=== PATIENT | male | born 1970 | race Caucasian/White ===

== ENCOUNTER → 2016-04-15 | Outpatient (CLI) | payer BC ==
[~2016-04-15] MED LIST: HCTZ DAILY; OLMESARTAN; OXYC-57 PO; [UNRECOGNIZED DRUG - OTHER]; [UNRECOGNIZED DRUG - OTHER]
[2016-04-15 18:55] LABS: BASO % 0.2 %; BASO ABS # 0.03 K/uL (0-0.2); COMPLETE YES; EOS % 1.7 %; HEMATOCRIT 44.2 % (42-52); IG% 0.6 %; LYMPH % 29.1 %; LYMPH ABS # 3.68 K/uL (1.2-3.4); MEAN CELL VOLUME 91.9 fL (80-100); MEAN CORPUSCULAR HEMOGLOBIN 30.4 pg (25-34); MEAN PLATELET VOLUME 9.8 fL (7.4-10.4); NEUT % 61.4 %; PLATELET COUNT 348 K/uL (130-400); RED BLOOD COUNT 4.81 M/uL (4.7-6.1); WHITE BLOOD COUNT 12.65 K/uL (4.8-10.8)
[2016-04-15 19:04] LABS: ALT/SGPT 22 U/L (12-78); BLOOD UREA NITROGEN 42 mg/dl (7-18); BUN/CREATININE RATIO 14.4 (10-20); CALCIUM 8.9 mg/dl (8.5-10.1); CARBON DIOXIDE 26 mmol/L (21-32); CHLORIDE 103 mmol/L (98-107); CHOLESTEROL 150 mg/dl (0-200); GLUCOSE 117 mg/dl (70-99); POTASSIUM 4.1 mmol/L (3.5-5.1); SODIUM 141 mmol/L (136-145); TRIGLYCERIDES 450 mg/dl (0-150)
[2016-04-15 19:07] LABS: ALB/GLOB RATIO 0.8 (0.9-2); ALKALINE PHOSPHATASE 157 U/L (45-117); AST/SGOT 21 U/L (15-37); CHOLESTEROL/HDL RATIO 4.2; HDL CHOLESTEROL 36 mg/dl
[2016-04-16 06:22] LABS: ESTIMATED AVERAGE GLUCOSE 151 mg/dl; HA1C FLAG Normal (Normal)
== END | disposition home or self-care (01) ==
LOC: C.LABSPEC 11:01
PROVIDERS: ATTEND Family Medicine
DX: E10.21 Type 1 diabetes mellitus with diabetic nephropathy (principal); I10 Essential (primary) hypertension

== ENCOUNTER → 2016-07-15 | Outpatient (CLI) | payer BC ==
[2016-07-15 18:06] LABS: BASO % 0.2 %; BASO ABS # 0.02 K/uL (0-0.2); COMPLETE YES; EOS % 1.5 %; IG% 0.5 %; LYMPH % 26.9 %; LYMPH ABS # 2.99 K/uL (1.2-3.4); MEAN CELL VOLUME 91.3 fL (80-100); MEAN CORPUSCULAR HEMOGLOBIN 31.5 pg (25-34); MEAN CORPUSCULAR HGB CONC 34.5 g/dl (32-36); MEAN PLATELET VOLUME 9.7 fL (7.4-10.4); NEUT % 62.9 %; PLATELET COUNT 272 K/uL (130-400)
[2016-07-15 18:33] LABS: ALT/SGPT 19 U/L (12-78); BLOOD UREA NITROGEN 37 mg/dl (7-18); BUN/CREATININE RATIO 12.2 (10-20); CALCIUM 8.7 mg/dl (8.5-10.1); CARBON DIOXIDE 27 mmol/L (21-32); CHLORIDE 107 mmol/L (98-107); GLUCOSE 81 mg/dl (70-99); POTASSIUM 3.7 mmol/L (3.5-5.1); SODIUM 142 mmol/L (136-145)
[2016-07-15 18:36] LABS: ALB/GLOB RATIO 0.9 (0.9-2); ALKALINE PHOSPHATASE 162 U/L (45-117); AST/SGOT 17 U/L (15-37)
[2016-07-16 06:18] LABS: ESTIMATED AVERAGE GLUCOSE 189 mg/dl; HA1C FLAG Normal (Normal)
== END | disposition home or self-care (01) ==
LOC: C.LABSPEC 11:27
PROVIDERS: ATTEND Family Medicine
DX: E10.21 Type 1 diabetes mellitus with diabetic nephropathy (principal)

== ENCOUNTER → 2016-11-26 | Outpatient (CLI) | payer BC ==
[2016-11-26 18:21] LABS: BASO % 0.3 %; BASO ABS # 0.03 K/uL (0-0.2); COMPLETE YES; EOS % 1.4 %; HEMATOCRIT 41.2 % (42-52); IG% 0.5 %; LYMPH % 23.4 %; LYMPH ABS # 2.75 K/uL (1.2-3.4); MEAN CELL VOLUME 89.4 fL (80-100); MEAN CORPUSCULAR HEMOGLOBIN 31.5 pg (25-34); MEAN CORPUSCULAR HGB CONC 35.2 g/dl (32-36); MEAN PLATELET VOLUME 10.2 fL (7.4-10.4); MONO % 6.4 %; PLATELET COUNT 313 K/uL (130-400); RED BLOOD COUNT 4.61 M/uL (4.7-6.1); WHITE BLOOD COUNT 11.76 K/uL (4.8-10.8)
[2016-11-26 18:44] LABS: ALB/GLOB RATIO 0.8 (0.9-2); ALKALINE PHOSPHATASE 176 U/L (45-117); ALT/SGPT 19 U/L (12-78); AST/SGOT 21 U/L (15-37); BLOOD UREA NITROGEN 57 mg/dl (7-18); BUN/CREATININE RATIO 12.3 (10-20); CALCIUM 8.7 mg/dl (8.5-10.1); CARBON DIOXIDE 27 mmol/L (21-32); CHLORIDE 101 mmol/L (98-107); GLUCOSE 107 mg/dl (70-99); POTASSIUM 3.9 mmol/L (3.5-5.1); SODIUM 137 mmol/L (136-145)
== END | disposition home or self-care (01) ==
LOC: C.LABSPEC 17:36
PROVIDERS: ATTEND Family Medicine
DX: R25.2 Cramp and spasm (principal); R42 Dizziness and giddiness; R61 Generalized hyperhidrosis; R06.02 Shortness of breath

== ENCOUNTER → 2017-05-01 | Outpatient (CLI) | payer BC, OTHER ==
[2017-05-01 18:30] LABS: BASO % 0.1 %; BASO ABS # 0.02 K/uL (0-0.2); EOS % 0.3 %; EOS ABS # 0.05 K/uL (0-0.5); HEMATOCRIT 42.3 % (42-52); HEMOGLOBIN 14.5 g/dL (14.0-18.0); IG# 0.08 K/uL (0.00-0.02); LYMPH % 8.7 %; LYMPH ABS # 1.38 K/uL (1.2-3.4); MEAN CELL VOLUME 92.6 fL (80-100); MEAN CORPUSCULAR HEMOGLOBIN 31.7 pg (25-34); MEAN CORPUSCULAR HGB CONC 34.3 g/dl (32-36); MEAN PLATELET VOLUME 10.1 fL (7.4-10.4); MONO % 4.5 %; MONO ABS # 0.72 K/uL (0.11-0.59); NEUT % 85.9 %; PLATELET COUNT 298 K/uL (130-400); RED CELL DISTRIBUTION WIDTH CV 13.5 % (11.5-14.5); RED CELL DISTRIBUTION WIDTH SD 45.5 fL (36.4-46.3); WHITE BLOOD COUNT 15.95 K/uL (4.8-10.8)
[2017-05-01 20:06] LABS: ALBUMIN 2.8 gm/dl (3.4-5.0); ALKALINE PHOSPHATASE 150 U/L (45-117); ALT/SGPT 16 U/L (12-78); AST/SGOT 15 U/L (15-37); BLOOD UREA NITROGEN 42 mg/dl (7-18); CALCIUM 8.8 mg/dl (8.5-10.1); CARBON DIOXIDE 26 mmol/L (21-32); CHOLESTEROL 115 mg/dl (0-200); CREATININE 3.79 mg/dl (0.60-1.40); GLUCOSE 386 mg/dl (70-99); LDL CHOLESTEROL CALCULATED 19 mg/dl; POTASSIUM 4.9 mmol/L (3.5-5.1); SODIUM 133 mmol/L (136-145); TOTAL PROTEIN 6.4 gm/dl (6.4-8.2)
== END | disposition home or self-care (01) ==
LOC: C.LABSPEC 17:52
PROVIDERS: ATTEND Family Medicine
DX: E10.21 Type 1 diabetes mellitus with diabetic nephropathy (principal); I10 Essential (primary) hypertension

== ENCOUNTER → 2017-07-31 | Outpatient (CLI) | payer BC ==
[2017-07-31 18:12] LABS: BASO % 0.2 %; BASO ABS # 0.02 K/uL (0-0.2); EOS % 1.7 %; EOS ABS # 0.19 K/uL (0-0.5); HEMATOCRIT 40.1 % (42-52); HEMOGLOBIN 13.9 g/dL (14.0-18.0); IG# 0.08 K/uL (0.00-0.02); LYMPH % 26.2 %; LYMPH ABS # 2.97 K/uL (1.2-3.4); MEAN CELL VOLUME 90.5 fL (80-100); MEAN CORPUSCULAR HEMOGLOBIN 31.4 pg (25-34); MEAN CORPUSCULAR HGB CONC 34.7 g/dl (32-36); MEAN PLATELET VOLUME 9.8 fL (7.4-10.4); MONO % 6.6 %; MONO ABS # 0.75 K/uL (0.11-0.59); NEUT % 64.6 %; NEUT ABS # 7.33 K/uL (1.4-6.5); PLATELET COUNT 286 K/uL (130-400); RED CELL DISTRIBUTION WIDTH CV 13.5 % (11.5-14.5); WHITE BLOOD COUNT 11.34 K/uL (4.8-10.8)
[2017-07-31 18:24] LABS: ALT/SGPT 16 U/L (12-78); AST/SGOT 12 U/L (15-37); BLOOD UREA NITROGEN 54 mg/dl (7-18); CALCIUM 8.7 mg/dl (8.5-10.1); CARBON DIOXIDE 24 mmol/L (21-32); CREATININE 4.48 mg/dl (0.60-1.40); GLUCOSE 213 mg/dl (70-99); POTASSIUM 3.7 mmol/L (3.5-5.1); SODIUM 136 mmol/L (136-145)
[2017-07-31 18:25] LABS: ALKALINE PHOSPHATASE 145 U/L (45-117); TOTAL PROTEIN 6.8 gm/dl (6.4-8.2)
[2017-08-01 07:13] LABS: HEMOGLOBIN A1C 9.1 % (4.5-5.6)
== END | disposition home or self-care (01) ==
LOC: C.LABSPEC 17:54
PROVIDERS: ATTEND Family Medicine
DX: E10.21 Type 1 diabetes mellitus with diabetic nephropathy (principal)

== ENCOUNTER → 2017-11-04 | Outpatient (CLI) | payer BC ==
[~2017-11-04] MED LIST changes: +ALLO300T2 PO; +ATOR-22 PO; +CHOL500021 PO; -HCTZ DAILY; +HYDR12.55 PO; +INSDGI SC; +LIRA1INJ2 SQ; +LOSA1TAB PO; +NOVOLOG SQ; +NXM/40 PO; -OLMESARTAN; +OMEG10007 PO; +RIZA10TA18 PO; +TRAM-10 PO; -[UNRECOGNIZED DRUG - OTHER]; -[UNRECOGNIZED DRUG - OTHER]
[2017-11-04 18:36] LABS: BASO % 0.2 %; BASO ABS # 0.02 K/uL (0-0.2); EOS % 2.1 %; EOS ABS # 0.21 K/uL (0-0.5); HEMATOCRIT 39.9 % (42-52); HEMOGLOBIN 13.5 g/dL (14.0-18.0); IG# 0.06 K/uL (0.00-0.02); LYMPH % 25.9 %; LYMPH ABS # 2.64 K/uL (1.2-3.4); MEAN CELL VOLUME 91.7 fL (80-100); MEAN CORPUSCULAR HGB CONC 33.8 g/dl (32-36); MEAN PLATELET VOLUME 10.1 fL (7.4-10.4); MONO ABS # 0.61 K/uL (0.11-0.59); NEUT % 65.2 %; NEUT ABS # 6.67 K/uL (1.4-6.5); PLATELET COUNT 311 K/uL (130-400); RED CELL DISTRIBUTION WIDTH SD 43.4 fL (36.4-46.3); WHITE BLOOD COUNT 10.21 K/uL (4.8-10.8)
[2017-11-04 18:52] LABS: ALBUMIN 3.1 gm/dl (3.4-5.0); ALKALINE PHOSPHATASE 136 U/L (45-117); ALT/SGPT 19 U/L (12-78); AST/SGOT 20 U/L (15-37); BLOOD UREA NITROGEN 56 mg/dl (7-18); CALCIUM 8.4 mg/dl (8.5-10.1); CARBON DIOXIDE 28 mmol/L (21-32); GLUCOSE 109 mg/dl (70-99); POTASSIUM 3.9 mmol/L (3.5-5.1); SODIUM 139 mmol/L (136-145); TOTAL PROTEIN 6.8 gm/dl (6.4-8.2)
[2017-11-05 06:56] LABS: HEMOGLOBIN A1C 9.2 % (4.5-5.6)
== END | disposition home or self-care (01) ==
LOC: C.LABSPEC 18:01
PROVIDERS: ATTEND Family Medicine
DX: E10.21 Type 1 diabetes mellitus with diabetic nephropathy (principal)

== ENCOUNTER 2017-11-05 07:23 | Day surgery (SDC) | payer BC ==
[~2017-11-05] VITALS: Ht 165.1 cm; Wt 84.1 kg
--- NOTE | 2017-11-05 06:19 | History and Physical ---
History & Physical Date of Service Nov 05, 2017. History & Physical End stage renal disease HPI: Mr. Leo had a fistula placed in the recent past. It went on to occluded. . He had an ultrasound performed which showed his fistula in his left wrist to be occluded at its origin. Cephalic vein just above this is patent and of good caliber however the radial artery flow is diminished in the radial artery heavily calcified. The cephalic vein in the upper arm on the left side is occluded at the shoulder level. The basilic vein is of good caliber on the left side. The right side has small veins in the forearm but does have a good cephalic vein in the upper arm He denies other complaints at this time including headaches, fevers, chills, dizziness, chest pain, shortness of breath , abdominal pain, nausea, vomiting, diarrhea, constipation, dysuria, hematuria, rest pain, claudication, nonhealing wounds or ulcers or other concerns. . ALLERGIES: No known allergies. HOME MEDICATIONS: Reconciled in the chart and include the following: Allopurinol, atorvastatin, esomeprazole, fish oil, hydrochlorothiazide, Lantus, losartan, Maxalt, NovoLog, Saxenda and vitamin D3. PAST MEDICAL HISTORY: Positive for cataracts, type 1 diabetes mellitus, gastroesophageal reflux disease, hypertension, kidney stones, allergic rhinitis. PAST SURGICAL HISTORY: Positive for appendectomy, EGD, photocoagulation to retina and repair of umbilical hernia. FAMILY HISTORY: Positive for ALS in his mother, coronary disease and kidney disease in his father, diabetes in his father and sister. SOCIAL HISTORY: Positive for a past history of tobacco use. The patient quit smoking in 2000. He does not drink alcohol or use illicit drugs, and he is currently employed at a full-time job in a [employer]. REVIEW OF SYSTEMS: Negative for fatigue, fevers, sweats, weight loss, exercise intolerance, abnormal moles or rashes, vision changes or photophobia, ear pain, sinus problems, sore throat, cough, shortness of breath, hemoptysis or wheezing , chest pain, palpitations, edema or syncope, abdominal pain, nausea, vomiting, diarrhea, constipation, dysuria, hematuria, rest pain, claudication, muscle weakness, headaches, dizziness, numbness or seizures. PHYSICAL EXAMINATION: His vital signs today were as follows: Blood pressure 122/66 in the right arm, 114/70 in the left, heart rate 105, oxygen 98% on room air. The patient is 165.1 cm tall and weighs 82.1 kg. Constitutional: In general, the patient is an obese, chronically ill-appearing, middle-aged male in no acute distress. He ambulates slowly without assistance and is active, alert and oriented x4 with normal recent and remote memory. Head is normocephalic and atraumatic. Eyes are EOMI. ENMT exam demonstrates no hearing loss, rhinorrhea or pharyngeal erythema. Neck is supple, nontender with midline trachea without mass or crepitus. Lung exam demonstrates no dyspnea. They are decreased somewhat throughout, but clear bilaterally. Cardiovascular demonstrates nondisplaced apical impulse with a regular rate and rhythm without murmurs. Peripheral pulses are full and equal in all extremities unless otherwise noted. Specifically they are normal in his carotid , brachial, radial and femoral pulses. Lower extremity distal pulses are +1. He has brisk capillary refill, no sign of distal ischemia. Abdomen is soft, nontender with normoactive bowel sounds in all 4 quadrants without guarding or rebound. There is no flank or CVA tenderness and no pulsatile mass appreciable. Bilateral upper extremities demonstrate no cyanosis, edema, clubbing, varicosities or ulcers. No flow in the fistula. Bilateral lower extremities demonstrate trace edema but no cyanosis or ulcerations. ASSESSMENT AND PLAN: End-stage renal disease, not yet on hemodialysis. Plan: Patient for a right antecubital cephalic vein AV fistula creation. I have discussed the risks options and benefits of the procedure with the patient. The patient understands the risks options and benefits and agrees to the procedure.
[~2017-11-05 07:23] MED LIST changes: +CEFAZOLIN 2000MG IV PUSH 15 ML IV SCH; -OXYC-57 PO; +SODIUM CHLORIDE 0.9% 1000ML 1,000 ML IV SCH; -TRAM-10 PO
[2017-11-05 07:59] VITALS: BP 157/90; PULSE 80; TEMP 36.7; O2SAT 98; Ht 165.1 cm; Wt 84.1 kg
[2017-11-05 08:25] LABS: CALCIUM 8.4 mg/dl (8.5-10.1); CREATININE 4.04 mg/dl (0.60-1.40); POTASSIUM 4.3 mmol/L (3.5-5.1); TOTAL PROTEIN 6.7 gm/dl (6.4-8.2)
[2017-11-05] MEDS ORDERED: PROPOFOL IV EMULSION 10 MG/ML 20 ML VIAL ONE (08:25)
[2017-11-05] MEDS ORDERED: LIDOCAINE HCL 2% 2 ML VIAL (20MG/ML) ONE (08:25)
[2017-11-05] MEDS ORDERED: MIDAZOLAM HCL 1 MG/ML 2ML VIAL ONE ×2 (08:26→09:17)
[2017-11-05] MEDS ORDERED: FENTANYL CITRATE INJ 50 MCG/1 ML 2 ML VIAL ONE (08:26)
--- NOTE | 2017-11-05 08:44 | History & Physical Bridge Note ---
H&P Re-Evaluation Bridge Note: I have examined the patient, reviewed the History & Physical and in the interval since the performance of the History & Physical I have noted the following changes of clinical significance: No changes noted
[2017-11-05] MEDS ORDERED: ATROPINE SULFATE 0.1 MG/ML 5ML SYR IV PRN (08:45)
[2017-11-05] MEDS ORDERED: EpHEDrine SULFATE INJ 50 MG/ML AMP IV PRN (08:45)
[2017-11-05] MEDS ORDERED: HEPARIN SOD (PORCINE) 1000 UNIT/ML 10 ML VIAL ONE (08:52)
[2017-11-05] MEDS ORDERED: GELATIN SPONGE SZ 100 ONE (08:52)
[2017-11-05] MEDS ORDERED: THROMBIN FOR SOLN 20000 UNIT KIT ONE (08:52)
[2017-11-05] MEDS ORDERED: BUPIVACAINE/EPINEPHRINE 0.5% MPF 1:200,000 30 ML VIAL ONE (08:52)
[2017-11-05] MEDS ORDERED: LIDOCAINE HCL 1% 20 ML VIAL ONE (08:52)
--- NOTE | 2017-11-05 10:00 | [facility] Post Operative Brief Note ---
Immediate Operative Summary Operative Date Nov 05, 2017. Pre-Operative Diagnosis End Stage Renal Disease Post-Operative Diagnosis End Stage Renal Disease Procedure(s) Performed Right Antecubital Cephalic Vein AV Fistula Creation Surgeon Dr. Emmanuel Lyles [employer] Lead Surgeon(s) Mavis De Luna PA-C Estimated Blood Loss 5mL Findings Consistent with Post-Op Diagnosis Specimens none per surgeon Anesthesia Type MAC Complication(s) none Disposition Accompanied Pt To Recover: no Disposition: Recovery Room / PACU
[2017-11-05] MEDS ORDERED: OXYC-57 PO (10:07)
--- NOTE | 2017-11-05 10:10 | Discharge Instructions ---
Discharge Instructions Date of Service Nov 05, 2017. Visit Reason for Visit: End Stage Renal Disease Discharge Discharge Diagnosis / Problem: End-stage renal disease Discharge Goals Goal(s): Therapeutic intervention Activity Recommendations Activity Limitations: per Instructions/Follow-up section Shower/Bathe: tomorrow Driving or Machine Use: resume 3 days after discharge Anesthesia . Post Anesthesia Instructions: If you have had General Anesthesia or IV Sedation: * Do not drive today. * Resume driving when surgeon permits. * Do not make important decisions or sign legal documents today. * Call surgeon for: 1. Temperature elevations greater than 101 degrees F. 2. Uncontrollable pain. 3. Excessive bleeding. 4. Persistent nausea and vomiting. 5. Medication intolerance (nausea, vomiting or rash). * For nausea and vomiting use only clear liquids such as: tea, soda, bouillon until nausea subsides, then gradually increase diet as tolerated. * If you have any concerns or questions, call your surgeon's office. If physician is unavailable and it is an emergency, call 911 or go to the nearest emergency room. . Instructions / Follow-Up Instructions / Follow-Up Call [phone] to schedule a follow up appointment if one not already scheduled. ACTIVITY RECOMMENDATIONS: See Above SPECIAL CARE INSTRUCTIONS: Call your doctor if: * Temperature above 101 degrees * Pain not relieved by pain medicine ordered * There is increased drainage or redness from any incision * You have any unanswered questions or concerns. Diet Recommendations Recommended Home Diet: resume previous diet Procedures Procedures Performed: Right Antecubital Cephalic Vein AV Fistula Creation Pending Studies Studies pending at discharge: no Work Instructions Return To Work: 1 week Additional Instructions: May return to work on Nov 13, 2017 without restrictions Medical Emergencies . Who to Call and When: Medical Emergencies: If at any time you feel your situation is an emergency, please call 911 immediately. . Non-Emergent Contact Non-Emergency issues call your: Surgeon . . "Provider Documentation" section prepared by Randall Lyles. .
--- NOTE | 2017-11-05 10:14 | [facility] Operative Report ---
Operative Report Operative Date Nov 05, 2017. Pre-Operative Diagnosis End Stage Renal Disease Post-Operative Diagnosis End Stage Renal Disease Procedure(s) Performed Right Antecubital Cephalic Vein AV Fistula Creation Surgeon Dr. Emmanuel Lyles [employer] Planner Surgeon(s) Mavis De Luna PA-C Estimated Blood Loss 5mL Findings Good thrill in the fistula post procedure. Specimens none per surgeon Anesthesia Type MAC Complication(s) none Disposition no Recovery Room / PACU Indications This is a 47-year-old white male with end-stage renal disease in need of a permanent access. A right antecubital cephalic vein fistula was recommended.I have discussed the risks options and benefits of the procedure with the patient. The patient understands the risks options and benefits and agrees to the procedure. Description of Procedure The patient was taken to the operating room placed in the supine position. After the right arm was prepped and draped in a sterile manner local anesthetic was administered. A transverse incision was made just below the antecubital fossa. This was carried out where the cephalic vein and median cubital vein was identified. Branches from the cephalic and median cubital vein were ligated and divided. The brachial artery was then isolated for short segment. It was of good caliber. Cephalic vein was also about 3-1/2-4 mm in size. The median cubital vein was then ligated distally and divided. The brachial artery was clamped proximal distally. A longitudinal arteriotomy was then made. Mild calcifications are seen. The median cubital vein was then beveled. An end-to- side anastomosis was accomplished between the median cubital vein and the brachial artery. This was done in the usual vascular fashion using 6-0 Prolene suture. Once this was completed all clamps were removed. Excellent flow was seen. Adequate hemostasis was noted. There was a good thrill in the fistula. States was then noted of the wound. Wound was then closed in the usual fashion using a running 3-0 Vicryl suture for the subcutaneous layer and a running 4-0 subcuticular suture for the skin edges. Sterile dressings were then applied.The patient left the operation room in satisfactory condition and tolerated the procedure well. All needle and sponge counts were correct at the end of the procedure. Maria Del Carmen De Luna Pac assisted due to lack of resident availability and was necessary for positioning, draping, retraction, wound closure deep layers, subcutaneous tissue, and skin closure and was necessary for assisting with the case. I attest to the content of the Intraoperative Record and any orders documented therein. Any exceptions are noted below.
[2017-11-05] MEDS ORDERED: OXYCODONE/ACETAMINOPHEN 5-325 TAB PO PRN (10:15)
--- NOTE | 2017-11-05 10:43 | Anesthesiology Progress Note ---
Anesthesia Post Op Note Date & Time Nov 05, 2017 at 10:43 Vital Signs Pain Intensity: 0 Vital Signs Past 12 Hours Date Time Temp Pulse Resp B/P (MAP) Pulse Ox O2 Delivery O2 Flow Rate FiO2 11/05/17 10:37 82 14 11/05/17 10:37 82 14 97 11/05/17 10:36 120/78 11/05/17 10:32 81 16 11/05/17 10:32 81 16 95 11/05/17 10:31 125/81 11/05/17 10:27 78 14 95 11/05/17 10:27 79 14 11/05/17 10:26 80 14 11/05/17 10:26 80 14 124/80 93 11/05/17 10:21 85 14 11/05/17 10:21 86 14 110/73 94 11/05/17 10:16 81 14 11/05/17 10:16 81 14 120/74 92 11/05/17 10:13 118/79 11/05/17 10:12 103/82 11/05/17 10:11 36.5 82 16 118/79 98 Oxymask 10 11/05/17 07:59 36.7 80 20 157/90 (112) 98 Room Air Notes Mental Status: alert / awake / arousable, participated in evaluation Pt Amnestic to Procedure: Yes Nausea / Vomiting: adequately controlled Pain: adequately controlled Airway Patency, RR, SpO2: stable & adequate BP & HR: stable & adequate Hydration State: stable & adequate Anesthetic Complications: no major complications apparent
[2017-11-05 10:50] VITALS: BP 126/80; PULSE 82; TEMP 36.6; O2SAT 94
[2017-11-05 11:25] VITALS: BP 156/89; PULSE 88; TEMP 36.1; O2SAT 99
[2017-11-05] MEDS ORDERED: TRAM-10 PO (11:29)
[2017-11-05] MEDS ORDERED: TRAMADOL HCL 50 MG TAB PO PRN (11:30)
== END 2017-11-05 11:49 | disposition home or self-care (01) ==
LOC: C.ACU 07:23
PROVIDERS: ATTEND Surgery Vascular Surgery
DX: N18.6 End stage renal disease (principal); I12.0 Hypertensive chronic kidney disease with stage 5 chronic kidney disease or end stage renal disease; K21.9 Gastro-esophageal reflux disease without esophagitis; E11.22 Type 2 diabetes mellitus with diabetic chronic kidney disease; E66.9 Obesity, unspecified; Z68.30 Body mass index [BMI] 30.0-30.9, adult; G47.33 Obstructive sleep apnea (adult) (pediatric); F17.220 Nicotine dependence, chewing tobacco, uncomplicated; E78.5 Hyperlipidemia, unspecified; Z79.4 Long term (current) use of insulin